=== PATIENT | female | born 1980 | race Caucasian/White ===

== ENCOUNTER 2021-05-21 13:00 | Emergency (ER) | payer OTHER ==
[~2021-05-21] VITALS: Ht 167.6 cm; Wt 71.7 kg
[2021-05-21] MEDS ORDERED: LISINOPRIL20 MG PO (13:21)
[2021-05-21] MEDS ORDERED: SUPER THERAVIT1 EACH PO (13:21)
[2021-05-21] MEDS ORDERED: STOOL SOFTENER100 MG PO (13:21)
[2021-05-21] MEDS ORDERED: REVIA 50 MG TAB50 M1 PO (13:21)
[2021-05-21 14:01] LABS: HEMATOCRIT 39.1 % (37.0-47.0); MCH 31.4 pg (26.0-34.0); MCHC 33.2 g/dL (28.0-37.0); MCV 94.6 fL (80.0-100.0); MPV 7.8 fl. (7.2-11.1); RBC 4.13 mil/uL (4.20-5.00); RDW-CV 13.7 % (10.5-14.5); WBC 10.9 thou/uL (4.0-11.0)
[2021-05-21 14:12] LABS: CALCIUM 7.1 mg/dL (8.5-10.1); CREATININE 0.8 mg/dL (0.6-1.3); POTASSIUM 3.4 mmol/L (3.5-5.1)
[2021-05-21 14:16] LABS: ALBUMIN 3.8 g/dL (3.4-5.0); TOTAL BILIRUBIN 0.2 mg/dL (<0.1-1.0); TOTAL PROTEIN 6.3 g/dL (6.4-8.2)
[2021-05-21 14:59] LABS: ACETAMINOPHEN < 2 ug/mL (10-30); ALCOHOL 375 mg/dL (<10)
[2021-05-21 20:36] LABS: URINE BILIRUBIN NEGATIVE (Negative); URINE BLOOD TRACE (Negative); URINE CLARITY CLEAR; URINE COLOR YELLOW; URINE GLUCOSE-RANDOM NEGATIVE (Negative); URINE KETONES NEGATIVE (Negative); URINE LEUKOCYTES NEGATIVE (Negative); URINE NITRITE POSITIVE (Negative); URINE PROTEIN NEGATIVE (Negative); URINE SPECIFIC GRAVITY >= 1.030 (1.005-1.030); URINE UROBILINOGEN 0.2 E.U./dl (0.2-1.0)
[2021-05-21 20:44] LABS: AMP/METHAMP Negative (Negative); BARBITURATES Negative (Negative); BENZODIAZEPINES Negative (Negative); COCAINE Negative (Negative); METHADONE Negative (Negative); OPIATES Negative (Negative); PCP Negative (Negative); THC Negative (Negative)
[2021-05-21 20:48] LABS: BACTERIA >30 Many /HPF (None Seen); CASTS None Seen /LPF (None Seen); CRYSTALS None Seen /LPF (None Seen); MUCUS 0-3 Light strn/LPF (None Seen); SQUAMOUS >10 Many /LPF (0-3)
[2021-05-21 20:49] LABS: URINE RBC 0-2 Rare /HPF (0-2); URINE WBC 0-5 Rare /HPF (0-5)
[2021-05-21 23:43] VITALS: BP 112/74
== END 2021-05-21 23:43 | disposition home or self-care (01) ==
LOC: M.ERS 13:00
PROVIDERS: Emergency Medicine Emergency Medical Services
DX: F10.129 Alcohol abuse with intoxication, unspecified (principal); F32.9 Major depressive disorder, single episode, unspecified; Z79.899 Other long term (current) drug therapy